=== PATIENT | female | born 1960 | race Caucasian/White ===

== ENCOUNTER 2016-06-24 15:39 | Emergency (ER) | payer MEDICAID ==
[~2016-06-24] VITALS: Wt 90.0 kg
[~2016-06-24 15:39] MED LIST: BEN50 PO; CEPH-443 PO; CETI10CA PO; HC30CR25 TOP; IBUP800T25 PO; NAPR-260 PO; PRED20TA PO
[2016-06-24] MEDS ORDERED: ONDANSETRON (ODT) 4 MG TAB ODT STA (17:40)
--- NOTE | 2016-06-24 17:47 | ERD ---
ER Documentation Chief Complaint Date/Time DATE: 06/24/16 TIME: 17:41 Chief Complaint fall from 2 wks ago and bilateral knee pain . no deformity noted. HPI 55-year-old female with a history of arthritis and chronic knee pain presents the emergency department with complaints of bilateral knee pain and swelling. Patient states that one week ago she sustained a mechanical fall and landed on her knees. Patient states that since that time she has experienced intermittent 10 out of 10 bilateral knee pain and mild swelling which is exacerbated by walking or bearing weight and alleviated by rest and elevation. Patient states she has been treating her pain with Aleve daily and has noted moderate relief from the medication. She states however that she is having trouble sleeping because of the pain and wishes to obtain a knee support. Patient denies any fever, joint erythema or major swelling, recent travel, shortness of breath, chest pain, palpitations, dysuria, oliguria, abdominal pain numbness, tingling, or lower extremity edema. Patient states she was diagnosed with arthritis of her knees 3 years ago and since that time has experienced intermittent knee pain. ROS All systems reviewed and are negative except as per history of present illness. Medications Home Meds Active Scripts Naproxen* (Naprosyn*) 500 Mg Tablet, 500 MG PO BID Y for PAIN AND/OR INFLAMMATION, #30 TAB Prov:HARSHAD PETIT PA-C 06/24/16 Hydrocodone/Acetaminophen (Rowe 10-325 Tablet) 1 Each Tablet, 1 TAB PO Q6H Y for PAIN, #7 TAB Prov:HARSHAD PETIT PA-C 06/24/16 Naproxen* (Naprosyn*) 500 Mg Tablet, 500 MG PO BID Y for PAIN AND/OR INFLAMMATION, #30 TAB Prov:CORTEZ FINNEGAN PA-C 03/26/16 Ibuprofen* (Motrin*) 800 Mg Tab, 800 MG PO Q6, #30 TAB Prov:JEN VILLARREAL MD 12/16/15 Cetirizine Hcl* (Zyrtec*) 10 Mg Capsule, 10 MG PO DAILY, #20 TAB.CHEW Prov:JEN VILLARREAL MD 12/16/15 Prednisone* (Prednisone*) 20 Mg Tab, 40 MG PO DAILY for 5 Days, TAB Prov:JEN VILLARREAL MD 12/16/15 Hydrocortisone* Topical (Hydrocortisone* Topical) 2.5%-28.3 Gm Cream..g., 1 APPLIC TOP BID, #1 TUB Prov:CORTEZ FINNEGAN PA-C 11/25/15 Diphenhydramine Hcl* (Benadryl*) 50 Mg Cap, 50 MG PO Q6H Y for ITCHING/RASH, # 30 CAP Prov:CORTEZ FINNEGAN PA-C 11/25/15 Cephalexin* (Keflex*) 500 Mg Capsule, 500 MG PO QID for 7 Days, CAP Prov:CORTEZ FINNEGAN PA-C 11/25/15 Allergies Allergies: Coded Allergies: Penicillins (Verified Allergy, Mild, RASH, 03/26/16) PMhx/Soc Medical and Surgical Hx: pt denies Surgical Hx History of Surgery: No Anesthesia Reaction: No Hx Neurological Disorder: No Hx Respiratory Disorders: No Hx Cardiac Disorders: No Hx Psychiatric Problems: No Hx Miscellaneous Medical Probl: Yes (arthritis) Hx Alcohol Use: No Hx Substance Use: No Hx Tobacco Use: Yes (2 CIG/DAY) Smoking Status: Current every day smoker Physical Exam Vitals Vital Signs Date Time Temp Pulse Resp B/P Pulse Ox O2 Delivery O2 Flow Rate FiO2 06/24/16 18:14 98.5 77 18 180/80 98 Room Air 06/24/16 15:43 98.5 87 20 176/80 98 Physical Exam Const: Well-developed, nontoxic-appearing, in no acute distress peer Head: Atraumatic Eyes: Normal Conjunctiva ENT: Normal External Ears, Nose and Mouth. Neck: Full range of motion..~ No meningismus. Resp: Clear to auscultation bilaterally, no wheezes, rhonchi, rales Cardio: Regular rate and rhythm, no murmurs Abd: Soft, non tender, non distended. Normal bowel sounds Skin: No petechiae or rashes Back: No midline or flank tenderness Ext: Slightly antalgic gait. Mild tenderness to palpation surrounding bilateral knee joints. No evidence of significant knee joint effusion. No ecchymosis. No obvious deformity. Patient's has full active and passive range of motion at her hip, knee, and ankle joints. No sign of calf swelling, erythema, or tenderness. Joint non-erythematous, warm to touch. Pedal pulses equal and bilateral. No evidence of popliteal cyst formation. Collateral ligaments intact bilaterally. Negative Sahra's test. Negative anterior and posterior drawer test bilaterally. Lower extremity motor and sensory function intact bilaterally. DTRs intact at knee and Achilles. no cyanosis, or edema. Patient able to bear weight while standing and walk 20 feet without trouble. Neur: Awake and alert Psych: Normal Mood and Affect Results 24 hrs Current Medications Medications (Trade) Dose Ordered Sig/Judi Route PRN Reason Start Time Stop Time Status Last Admin Dose Admin Acetaminophen/ Hydrocodone Bitart (Rowe (10/325)) 1 tab ONCE ONCE PO 06/24/16 18:00 06/24/16 18:09 DC 06/24/16 17:49 Ondansetron HCl (Zofran Odt) 4 mg ONCE STAT ODT 06/24/16 17:40 06/24/16 17:41 DC 06/24/16 17:49 Procedures/MDM This is a 55-year-old female with a history of chronic knee pain and arthritis who presents to the emergency department for worsening arthritic knee pain which is exacerbated by a fall 1 week ago. Patient's history and physical exam was consistent with bilateral arthritic knee pain. At this time I have low suspicion for septic joint, DVT, PE, CHF, UTI, acute kidney injury, cellulitis, or fracture. Patient received Rowe for pain in the emergency department and reports improvement of pain symptoms. Based on patient's history of present illness and physical examination the decision was made to discharge. The patient was re-evaluated after ED treatment and stabilizing measures, and symptoms have improved. There is no evidence of life threatening injuries or illnesses at this time. On re-examination, patient resting in no distress, stable vital signs, reports feeling better and safe for discharge with outpatient follow up with PMD in 1-2 days. I discussed with the patient the importance of obtaining a referral to an microbial specialist so that she may better control her pain. Patient given return precautions. HARSHAD PETTI PA-C Jun 24, 2016 17:47
[2016-06-24] MEDS ORDERED: HYDR-902 PO (17:53)
[2016-06-24] MEDS ORDERED: NAPR-260 PO (17:53)
[2016-06-24] MEDS ORDERED: HYDROCODONE/APAP (10/325) TAB PO ONE (18:00)
[2016-06-24 18:14] VITALS: BP 180/80; PULSE 77; RESP 18; TEMP 98.5
== END 2016-06-24 18:14 | disposition home or self-care (01) ==
LOC: FTE 15:39
DX: S89.92XA Unspecified injury of left lower leg, initial encounter (principal); S89.91XA Unspecified injury of right lower leg, initial encounter; F17.210 Nicotine dependence, cigarettes, uncomplicated; W18.39XA Other fall on same level, initial encounter; Y92.9 Unspecified place or not applicable
CPT/HCPCS: Z7502; Z7610; 99283